=== PATIENT | male | born 1985 | race African-American/Black ===

== ENCOUNTER 2017-10-27 22:26 | Emergency (ER) | payer MEDICAID ==
[~2017-10-27] VITALS: Ht 167.6 cm; Wt 91.0 kg
[2017-10-28 03:12] LABS: BASOPHILS % 1.4 % (0.0-2.0); EOSINOPHILS % 3.8 % (0.0-5.0); HEMATOCRIT. 40.9 % (42.0-52.0); HEMOGLOBIN. 13.4 g/dL (14.0-18.0); LYMPHOCYTES % 34.1 % (20.0-50.0); MEAN CORPUSCULAR HEMOGLOBIN 25.8 pg (28.0-32.0); MEAN CORPUSCULAR VOLUME 78.8 fL (80.0-94.0); MEAN PLATELET VOLUME 7.2 fl (7.4-10.4); MONOCYTES % 7.5 % (2.0-8.0); NEUTROPHILS % 53.2 % (40.0-76.0); PLATELET 303 x1000/uL (130-400); RED BLOOD CELL COUNT 5.19 mill/uL (4.7-6.1); RED CELL DISTRIBUTION WIDTH 15.1 % (11.6-14.6)
[2017-10-28 03:17] LABS: PROTHROMBIN TIME 10.5 sec (9.4-11.6)
[2017-10-28 03:20] LABS: CARBON DIOXIDE 31 mEq/L (21-32); CHLORIDE 101 mEq/L (98-107)
[2017-10-28 03:23] LABS: TROPONIN I < 0.02 ng/mL (0.00-0.04)
[2017-10-28] MEDS ORDERED: ASPIRIN 81MG TABLET PO ONE (06:00)
[2017-10-28 06:10] VITALS: BP 107/72
== END 2017-10-28 06:15 | disposition home or self-care (01) ==
LOC: ER 22:26
DX: R07.89 Other chest pain (principal)
CPT/HCPCS: 36415; 71045; 80053; 83880; 84484; 85025; 85610; 93005; 99285; Z7610